=== PATIENT | male | born 1975 | race Caucasian/White ===

== ENCOUNTER 2021-03-16 15:54 | Emergency (ER) | payer MEDICAID ==
[~2021-03-16] VITALS: Ht 172.7 cm; Wt 83.9 kg
[2021-03-16 15:55] VITALS: BP_SYST 152
[2021-03-16 16:36] LABS: BASOPHILS # (AUTO) 0.1 K/uL (0.0-0.2); EOSINOPHILS # (AUTO) 0.1 K/uL (0.0-0.4); EOSINOPHILS % (AUTO) 1.2 % (0.0-4.0); HEMATOCRIT 42.8 % (36-54); HEMOGLOBIN 14.5 g/dL (14.0-18.0); LYMPHOCYTES # (AUTO) 0.9 K/uL (1.0-5.5); LYMPHOCYTES % (AUTO) 12.7 % (20.5-51.5); MEAN CORPUSCULAR HEMOGLOBIN 30 pg (27-31); MEAN CORPUSCULAR HGB CONC 34 % (32-36); MEAN CORPUSCULAR VOLUME 89 fL (79.0-98.0); MONOCYTES # (AUTO) 0.7 K/uL (0.0-1.0); MONOCYTES % (AUTO) 9.8 % (1.7-9.3); NEUTROPHILS # (AUTO) 5.3 K/uL (1.8-7.7); NEUTROPHILS % (AUTO) 75.3 % (40.0-70.0); PLATELET COUNT (AUTO) 198 K/uL (130-430); RED BLOOD CELL COUNT(AUTO) 4.82 MIL/uL (4.2-6.2); RED CELL DISTRIBUTION WIDTH 12.9 % (9.0-15.0)
[2021-03-16 16:47] LABS: CALCIUM 9.1 mg/dL (8.4-11.0); CREATININE 1.07 mg/dL (0.55-1.30); POTASSIUM 4.1 mmol/L (3.5-5.1)
[2021-03-16] MEDS: NACL 0.9% 1,000 ML IV ONE (16:49)
[2021-03-16] MEDS: ONDANSETRON HCL 4 MG/2 ML VIAL IVP ONE (16:50)
[2021-03-16] MEDS: PANTOPRAZOLE SODIUM 40 MG/VIAL (PROTONIX) IVP ONE (16:50)
[2021-03-16] MEDS: KETOROLAC TROMETHAMINE 30 MG VIAL IVP ONE (16:51)
[2021-03-16 16:52] LABS: PROTHROMBIN TIME 10.3 SECS (9.5-12.5)
[2021-03-16 16:54] LABS: TOTAL BILIRUBIN 0.3 mg/dL (0.0-1.0)
[2021-03-16 17:08] LABS: BILIRUBIN,URINE NEGATIVE (NEGATIVE); CLARITY/URINE CLEAR (CLEAR); COLOR,URINE YELLOW (YELLOW); GLUCOSE,URINE NEGATIVE (NEGATIVE); KETONES,URINE NEGATIVE (NEGATIVE); LEUKOCYTE ESTERASE ,URINE NEGATIVE (NEGATIVE); NITRITE, URINE NEGATIVE (NEGATIVE); PROTEIN URINE NEGATIVE (NEGATIVE); UROBILINOGEN,URINE 0.2 (0.2-1.0)
[2021-03-16 17:15] LABS: BLOOD, URINE TRACE (NEGATIVE)
[2021-03-16 17:33] LABS: BACTERIA,URINE RARE /HPF (None Seen); MUCUS,URINE None Seen /LPF (None Seen); RBC,URINE 0-3 /HPF (0-3); WBC,URINE 0-3 /HPF (0-3)
[2021-03-16 19:45] VITALS: BP_SYST 152
== END 2021-03-16 19:45 | disposition home or self-care (01) ==
LOC: SED 15:54
DX: R10.11 Right upper quadrant pain (principal); R11.2 Nausea with vomiting, unspecified
CPT/HCPCS: 36415; 74176; 76376; 76700; 80053; 81000; 83690; 85025; 85610; 85730; 96361; 96374; 96375; 99285; C9113; J1885; J2405; J7030; 93005